=== PATIENT | female | born 1955 | race Caucasian/White ===

== ENCOUNTER 2016-07-05 16:32 | Outpatient (CLI) | payer OTHER | END 2016-07-05 16:33 | LOC: LAB 16:32 | PROVIDERS: ATTEND Internal Medicine Cardiovascular Disease | DX: I48.92 Unspecified atrial flutter (principal); Z79.01 Long term (current) use of anticoagulants | CPT/HCPCS: 36415; 85610 ==

== ENCOUNTER 2016-07-13 15:24 | Outpatient (CLI) | payer OTHER | END 2016-07-13 15:25 | LOC: LAB 15:24 | PROVIDERS: ATTEND Internal Medicine Cardiovascular Disease | DX: Z51.81 Encounter for therapeutic drug level monitoring (principal); Z79.01 Long term (current) use of anticoagulants; I48.92 Unspecified atrial flutter | CPT/HCPCS: 36415; 85610 ==

== ENCOUNTER 2016-07-17 16:13 | Outpatient (CLI) | payer OTHER | END 2016-07-17 16:20 | LOC: LAB 16:13 | PROVIDERS: ATTEND Internal Medicine Cardiovascular Disease | DX: Z51.81 Encounter for therapeutic drug level monitoring (principal); Z79.01 Long term (current) use of anticoagulants; I48.91 Unspecified atrial fibrillation | CPT/HCPCS: 36415; 85610 ==

== ENCOUNTER 2016-07-26 13:37 | Emergency (ER) | payer OTHER ==
--- NOTE | 2016-07-26 16:31 | ED Physician Documentation ---
Upper Respiratory Symptoms - HISTORIAN Historian: patient - HPI Stated Complaint: sore throat, cough shortness of breath Chief Complaint: Upper Respiratory Symptoms Onset: other (yesterday) Associated Symptoms: sore throat Further Comments: yes (60 year old female patient presents with complaint of cough, sore throat and constipation. Patient states the sore throat started yesterday morning. Denies fever, chills, or abdominal pain. Reports chronic constipation.) - ROS CONST/EYES: denies: weakness, eye redness, eye itching, other CVS/RESP: none LYMPH: denies: leg swelling, rash, swollen glands, ankle swelling, other GI/: none NEURO/PSYCH: denies: fainting, dizziness, confusion, anxiety, depression, other MS/SKIN: denies: joint pain, muscle aches, rash, other - PAST HX Lung Disease: COPD PE Risk Factors: none Other History: CHF, other (chronic constipation, hypothyroidism) Allergies/Adverse Reactions: Allergies Allergy/AdvReac Type Severity Reaction Status Date / Time loracarbef [From Lorabid] Allergy Intermediate Hives Verified 07/26/16 16:22 naproxen sodium [From Aleve] Allergy Intermediate Generalized Verified 07/26/16 16:23 Swelling Penicillins Allergy Intermediate Hives Verified 07/26/16 16:22 phenylephrine HCl Allergy Intermediate Hives Verified 07/26/16 16:23 [From Contac-D Cold (PE)] Sulfa (Sulfonamide Allergy Intermediate Hives Verified 07/26/16 16:24 Antibiotics) Home Medications: Ambulatory Orders Medication Instructions Recorded Benzonatate [Tessalon Perles] 200 mg PO TID PRN #30 capsule 07/26/16 - SOCIAL HX Smoking History: non-smoker - FAMILY HX Family History: denies: none - VITAL SIGNS Vital Signs: Vital Signs Temp Pulse Resp BP Pulse Ox 98.4 F 84 16 179/98 95 07/26/16 13:38 07/26/16 13:38 07/26/16 13:38 07/26/16 13:38 07/26/16 13:38 - REVIEWED ASSESSMENTS Nursing Assessment Reviewed: Yes Vitals Reviewed: Yes Progress - Progress Progress: Reviewed lab results with patient and daughter, no coughing while in ER Discussed over the counter medications. Encouraged patient to add OTC laxative as needed for constipation. Tessalon perles to pharmacy for cough. ED Results Lab/Radiology - Lab Results Lab Results: Lab Results 07/26/16 07/26/16 14:45 14:00 Influenza Type A Ag Negative (NEGATIVE) Influenza Type B Ag Negative (NEGATIVE) Group A Strep Screen Negative (NEGATIVE) - Orders Orders: ED Orders Category Date Time Status INFLUENZA A&B Stat Lab 07/26/16 14:45 Completed Rapid Strep [GRP A STREP SCREEN] Stat Lab 07/26/16 14:00 Completed THROAT CULTURE Stat Lab 07/26/16 14:00 Received Upper Respiratory Symptoms - EXAM General Appearance: no acute distress, alert EENT: eyes nml inspection, nml ENT inspection, lids & conjunct. nml, PERRL, ear nml, nose nml, pharynx nml, airway nml Respiratory: no resp. distress, breath sounds nml, no pain on inspiration, speaks full sentences, no pleuritic chest pain Abdomen: non-tender, no organomegaly, nml bowel sounds, no distention, other ( morbid obesity) CVS: reg rate & rhythm, heart sounds normal, equal pulses, no murmur, no gallop , PMI nml, no JVD, no friction rub, 24 Skin: color nml, no rash, warm,dry Extremities: non-tender, normal range of motion, no evidence of injury, no edema , J, GEOSPATIAL DEVELOPER Neuro/Psych: oriented x3, neuro intact, depressed mood/affect, CN's nml as tested, other (flat affect ) Discharge Clincal Impression: Cough Prescriptions: Benzonatate [Tessalon Perles] 200 mg PO TID PRN #30 capsule PRN Reason: Cough Additional Instructions: See your PCP if you develop fever, a productive cough and SOB. support merchandiser your medications at the pharmacy. Home Medications: Ambulatory Orders Benzonatate [Tessalon Perles] 200 mg PO TID PRN #30 capsule 07/26/16 Condition: Stable Disposition: 01 HOME, SELF-CARE Decision to Admit: NO Decision Time: 15:10
[2016-07-26 16:40] VITALS: BP 158/87
== END 2016-07-26 15:30 | disposition home or self-care (01) ==
LOC: ED 13:37
DX: R05 Cough (principal); R07.0 Pain in throat
CPT/HCPCS: 87070; 87400; 87880; 99282; 99283

== ENCOUNTER 2016-08-03 15:34 | Outpatient (CLI) | payer OTHER | END 2016-08-03 15:35 | LOC: LAB 15:34 | PROVIDERS: ATTEND Internal Medicine Cardiovascular Disease | DX: I48.92 Unspecified atrial flutter (principal); Z79.01 Long term (current) use of anticoagulants | CPT/HCPCS: 36415; 85610 ==

== ENCOUNTER 2016-08-06 17:26 | Emergency (ER) | payer OTHER ==
[2016-08-06 17:54] LABS: BASOPHILS % 0.6 (0.0-1.5); EOSINOPHILS % 3.2 % (0.0-6.8); LYMPHOCYTES # 2.1 # k/uL (0.6-4.0); MEAN CORPUSCULAR HEMOGLOBIN 28.2 pg (28.0-34.0); MONOCYTES # 0.4 # k/uL (0.0-0.9); MONOCYTES % 4.3 % (0.0-11.0); NEUTROPHILS # 6.2 # k/uL (1.4-7.7)
--- NOTE | 2016-08-06 17:57 | ED Physician Documentation ---
General Adult - HISTORIAN Historian: patient - HPI Stated Complaint: Bruising Chief Complaint: General Adult Onset: days ago (3) Timing: still present Severity: mild Further Comments: yes (Pt is a 60 yo female who takes coumadin for afib and c/o easy bruising. Pt was seen by pcp on Sunday and found to have an INR of 6.0. Pt was told to stop taking coumadin and aspirin. Pt has continued to have bruising on her back, limbs and chest, which are sore. No michel bleeding. Pt c /o "seeing spiders", dark lace-like patterns at the periphery of her das of vision, which vanished when she looked to the area. This was transient and is no longer happening.) - ROS CONST: no problems EYES/ENT: none CVS/RESP: shortness of breath (chronic) GI/: none MS/SKIN/LYMPH: other (easy bruising) NEURO/PSYCH: headache - PAST HX Past History: other (Afib, CAD, CHF, DM, HLD, HTN, Thyroid dz.) Allergies/Adverse Reactions: Allergies Allergy/AdvReac Type Severity Reaction Status Date / Time loracarbef [From Lorabid] Allergy Intermediate Hives Verified 08/06/16 17:46 naproxen sodium [From Aleve] Allergy Intermediate Generalized Verified 08/06/16 17:46 Swelling Penicillins Allergy Intermediate Hives Verified 08/06/16 17:46 phenylephrine HCl Allergy Intermediate Hives Verified 08/06/16 17:46 [From Contac-D Cold (PE)] Sulfa (Sulfonamide Allergy Intermediate Hives Verified 08/06/16 17:46 Antibiotics) Home Medications: Ambulatory Orders Medication Instructions Recorded Warfarin Sodium [Coumadin] 5 mg PO [id number] 08/06/16 Warfarin Sodium [Coumadin] 7.5 mg PO [id number] 08/06/16 - SOCIAL HX Smoking History: non-smoker - FAMILY HX Family History: No - VITAL SIGNS Vital Signs: Vital Signs Temp Pulse Resp BP Pulse Ox 97 F L 72 18 146/79 98 08/06/16 17:30 08/06/16 17:30 08/06/16 17:30 08/06/16 17:30 08/06/16 17:30 - REVIEWED ASSESSMENTS Nursing Assessment Reviewed: Yes Vitals Reviewed: Yes Progress - Progress Progress: Pt will f/u with pcp in am re: coumadin dosing and will f/u with ophthalmology for slit-lamp exam. Last eye exam in this pt with DM was September 2014. ED Results Lab/Radiology - Orders Orders: ED Orders Category Date Time Status CBC/PLATELET/DIFF Routine Lab 08/06/16 17:43 Received PT-INR Routine Lab 08/06/16 17:43 Received PTT Routine Lab 08/06/16 17:43 Received General Adult Physical Exam - PHYSICAL EXAM GENERAL APPEARANCE: mild distress EENT: eye inspection normal, pharynx normal, other (limited fundoscopic exam wnl ) NECK: normal inspection, supple RESPIRATORY: no resp distress, chest non-tender, breath sounds normal CVS: reg rate & rhythm, heart sounds normal ABDOMEN: soft, no organomegaly BACK: normal inspection, no CVA tenderness SKIN: other (ecchymosis on R calf and upper back; ) EXTREMITIES: non-tender, normal range of motion NEURO: oriented X3, motor nml, sensation nml Discharge Clincal Impression: bruising on coumadin Referrals: Saimr Maradiaga [Primary Care Provider] - Home Medications: Ambulatory Orders Warfarin Sodium [Coumadin] 5 mg PO [id number] 08/06/16 Warfarin Sodium [Coumadin] 7.5 mg PO [id number] 08/06/16 Condition: Good Disposition: 01 HOME, SELF-CARE Decision to Admit: NO Decision Time: 18:53
[2016-08-06 19:08] VITALS: BP 112/78
== END 2016-08-06 19:00 | disposition home or self-care (01) ==
LOC: ED 17:26
DX: T45.515A Adverse effect of anticoagulants, initial encounter (principal)
CPT/HCPCS: 85025; 85379; 85610; 85730; 99282; 99283

== ENCOUNTER 2016-08-11 14:47 | Outpatient (CLI) | payer OTHER | END 2016-08-11 14:50 | LOC: LAB 14:47 | PROVIDERS: ATTEND Internal Medicine Cardiovascular Disease | DX: Z51.81 Encounter for therapeutic drug level monitoring (principal); Z79.01 Long term (current) use of anticoagulants; I48.91 Unspecified atrial fibrillation | CPT/HCPCS: 36415; 85610 ==

== ENCOUNTER 2016-08-17 16:28 | Outpatient (CLI) | payer OTHER | END 2016-08-17 16:30 | LOC: LAB 16:28 | PROVIDERS: ATTEND Internal Medicine Cardiovascular Disease | DX: I48.92 Unspecified atrial flutter (principal) | CPT/HCPCS: 36415; 85610 ==